=== PATIENT | male | born 1970 | race Caucasian/White ===

== ENCOUNTER 2021-11-27 09:50 | Day surgery (SDC) | payer BC ==
[2021-11-25 14:56] VITALS: BMI 20.9
[2021-11-27] MEDS ORDERED: PROPOFOL 20 ML ONE ×2 (12:14)
[2021-11-27] MEDS ORDERED: LIDOCAINE HCL 2% (20ML MULTI-DOSE VIAL) ONE (12:14)
[2021-11-27] MEDS ORDERED: MIDAZOLAM HCL 2 MG/2 ML SINGLE DOSE VIAL ONE (12:15)
[2021-11-27] MEDS ORDERED: ePHEDrine SULFATE 50 MG/1 ML AMPULE ONE (12:26)
[2021-11-27] MEDS ORDERED: BUPIVACAINE HCL 50 ML ONE (12:32)
[2021-11-27] MEDS ORDERED: ONDANSETRON 4 MG/2 ML VIAL IVPUSH PRN (13:10)
[2021-11-27] MEDS ORDERED: PROMETHAZINE HCL 25 MG/1 ML VIAL IVPUSH PRN (13:10)
[2021-11-27] MEDS ORDERED: oxyCODONE HCL 5 MG TABLET PO PRN ×2 (13:10)
[2021-11-27 13:55] VITALS: TEMP 97
[2021-11-27 13:58] VITALS: BP 116/84; PULSE 91
== END 2021-11-27 14:20 | disposition home or self-care (01) ==
LOC: FASU 09:50
PROVIDERS: ATTEND Orthopaedic Surgery Hand Surgery
PROC: 0LN50ZZ Release Right Lower Arm and Wrist Tendon, Open Approach (ICD-10-PCS; principal; 2021-11-27 12:38)
DX: M65.831 Other synovitis and tenosynovitis, right forearm (principal)
CPT/HCPCS: 88304-TC; 94760